=== PATIENT | female | born 1945 | race Caucasian/White ===

== ENCOUNTER 2016-08-20 10:58 | Day surgery (SDC) | payer MEDICARE, OTHER ==
[2016-08-11 12:26] LABS: HEMOGLOBIN 12.7 g/dL (12.0-16.0)
[2016-08-11 12:43] LABS: BUN (BLOOD UREA NITROGEN) 20 MG/DL (6-23); CHLORIDE, SERUM 102 MMOL/L (96-112); CO2 (CARBON DIOXIDE) 30 MMOL/L (24-34); CREATININE 1.05 MG/DL (0.55-1.02); GFR AFRICAN AMERICAN 62 ML/MIN (>=60); GFR NON AFRICAN AMERICAN 54 ML/MIN (>=60); GLUCOSE, SERUM 98 MG/DL (60-99); POTASSIUM, SERUM 3.4 MMOL/L (3.5-5.3); SODIUM, SERUM 140 MMOL/L (135-148)
[2016-08-11 12:44] LABS: CALCIUM, SERUM 9.9 MG/DL (8.5-10.4)
--- NOTE | ~2016-08-20 | OP ---
Record Of Operation [facility] [address] [place]. [address] NAME: BETTY KAPLAN : 47 STATUS : [facility]#: [id number] AGE: 71 ADM/REG DATE : 08/20/16 MR#: [id number] REPORT SERV DATE: 09/15/16 DICTATED BY: CAROLIN HUANG DATE: 09/15/16 REPORT STATUS : Draft TRANSCRIBED BY: VIVIANA DATE: 09/15/16 DATE OF PROCEDURE: 08/20/2016 PREOPERATIVE DIAGNOSES: 1. 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 2. 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 POSTOPERATIVE DIAGNOSES: 1. 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 2. 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 PROCEDURE: Right 1st metatarsophalangeal joint arthrodesis with internal fixation. ANESTHESIA: Local anesthetic. ESTIMATED BLOOD LOSS: Minimal. COMPLICATIONS: None. INJECTABLES: Approximately 20 mL of 1:1 mixture of 1% Xylocaine and 0.5% Marcaine plain. MATERIALS: Arthrex 1st metatarsophalangeal fusion plating system with locking/nonlocking screw fixation; 2-0, 4-0 Vicryl; 4-0 nylon. PROCEDURE IN DETAIL: Under mild sedation, the patient was brought to the operating room and placed on the operating table in supine position. Following general anesthesia, local anesthesia obtained about the patient's right foot. Right foot, ankle, and lower leg were scrubbed, prepped, and draped in usual aseptic manner. Attention was directed to the procedure. Right 1st metatarsophalangeal arthrodesis with internal fixation. Attention directed to the dorsal aspect of the patient's right 1st metatarsophalangeal joint, where an approximate 5-6 cm incision was made medial and parallel to the extensor tendon. The incision was deepened to subcutaneous tissue with care being taken to identify and retract all vital neurovascular structures. All bleeders were cauterized and ligated as necessary. Linear capsular incision was made medial and parallel to the extensor tendon. Synovitis was present and gouty tophi was abundant. Copious irrigation ensued. Synovitis was removed as well as gouty tophi. Head of the proximal phalanx to the base of the intermediate phalanx showed significant cartilaginous loss, and cup and cone reamers were utilized to resect the remaining collagenous tissue to the head of the metatarsal and base of the proximal phalanx with penetration of the subchondral plate. Fenestration and fish scaling ensued with subchondral bleeding present. At this time, the toe was manually reduced. The intermetatarsal angle was also reduced as temporary fixation was placed throughout the dorsal plating system. Next, interfrag compression screw was placed across the first metatarsophalangeal joint with excellent compression noted. At this time, temporary fixation was removed from the dorsal plating system. Permanent locking/nonlocking fixation Record Of [facility] [address] [place]. [address] NAME: BETTY KAPLAN : 47 STATUS : [facility]#: [id number] AGE: 71 ADM/REG DATE : 08/20/16 MR#: [id number] REPORT SERV DATE: 09/15/16 DICTATED BY: CAROLIN HUANG DATE: 09/15/16 REPORT STATUS : Draft TRANSCRIBED BY: VIVIANA DATE: 09/15/16 was placed throughout the plate. Excellent stabilization position was noted under fluoroscopy visualization. Copious irrigation ensued. Capsular tissues were reapproximated and coapted using 2-0 Vicryl. Subcutaneous tissue was reapproximated and coapted using 4-0 Vicryl, skin was reapproximated and coapted using 4-0 nylon interrupted and continuous suture technique. A well-padded sterile dressing, a well-padded CAM walker was placed about the patient's right foot and ankle. The patient tolerated the procedure and anesthesia well and was transferred to recovery room with vital signs stable and vascular status intact to all toes. Following a period of postoperative monitoring, the patient will be discharged home on the following written and oral postoperative instructions. 1. Keep dressings clean, dry, intact. 2. Partial weightbearing for transfer, nonweightbearing with a knee walker for long distance, ice and elevate as directed, take medications as prescribed, and follow up with Dr. Huang in 7 to 14 days. LYNDA/VIVIANA Claudette YangPDenisha / [id number] CC: Nora Yang M.D.
[~2016-08-20 10:58] MED LIST: ACET500CAP PO; ATEN25 PO; CARDU2 PO; COLCH6 PO; KDUR20 PO; MAXZIDE PO; PRILOSEC40 MG PO; SYN125 PO; TART CHERRY PO; VITAMIN D31000 UNIT PO; Z300 PO
== END 2016-08-20 18:40 | disposition home or self-care (01) ==
LOC: SDC 10:58
PROVIDERS: Podiatrist Foot & Ankle Surgery
PROC: 0SGM0ZZ (ICD-10-PCS; principal; 2016-08-20 13:30)
DX: M1A.9XX1 Chronic gout, unspecified, with tophus (tophi) (principal); I10 Essential (primary) hypertension; K21.9 Gastro-esophageal reflux disease without esophagitis; Z90.710 Acquired absence of both cervix and uterus; E03.9 Hypothyroidism, unspecified; G47.33 Obstructive sleep apnea (adult) (pediatric); Z88.0 Allergy status to penicillin; Z88.2 Allergy status to sulfonamides; Z88.5 Allergy status to narcotic agent; Z79.899 Other long term (current) drug therapy; Z90.49 Acquired absence of other specified parts of digestive tract; Z98.890 Other specified postprocedural states
CPT/HCPCS: 80048; 85014; 85018; 93005; A9270-GY; C1713; C1769; J0690; J1170; J2250; J2405; J2710; J3010